=== PATIENT | female | born 1955 | race Caucasian/White ===

== ENCOUNTER → 2017-02-05 | Outpatient (CLI) | payer OTHER ==
--- NOTE | 2017-02-05 10:09 | RADIOLOGY REPORT (SQ) ---
EXAM DESCRIPTION: U/S ABDOMEN LIMITED W/O DOP COMPLETED DATE/TIME: 02/05/2017 8:51 am REASON FOR STUDY: R68.81 EARLY SATIETY R10.9 ABDOMINAL PAIN, UNSPECIFIED SITE R68.81 EARLY SATIETY R10.9 UNSPECIFIED ABDOMINAL PAIN COMPARISON: CT abdomen pelvis 05/18/2014, 09/26/2013 TECHNIQUE: Dynamic and static grayscale images acquired of the abdomen and recorded on PACS. Additio nal selected color Doppler and spectral images recorded. LIMITATIONS: Midline bowel gas, large patient. FINDINGS: PANCREAS: Midline pancreas unremarkable. LIVER: No masses. Echotexture normal. LIVER VASCULATURE: Normal directional flow of the main portal vein and hepatic veins. GALLBLADDER: Surgically absent ULTRASOUND-DETECTED CANTOR'S SIGN: Negative. INTRAHEPATIC DUCTS AND COMMON DUCT: CBD and intrahepatic ducts normal caliber. No filling defects. INFERIOR VENA CAVA: Not well seen AORTA: No aneurysm. RIGHT KIDNEY: Right renal pelvis calculus seen in 2015 is not definitely identified on today's study PERITONEAL AND RIGHT PLEURAL SPACE: No ascites or effusions. OTHER: No other significant findings. IMPRESSION: Post cholecystectomy. No intrahepatic biliary ductal dilatation Midline pancreas unremarkable. TECHNICAL DOCUMENTATION: JOB ID: [id number] [email or web address] All Rights Reserved
== END ==
LOC: RAD 07:55
PROVIDERS: ATTEND Internal Medicine Gastroenterology
DX: R10.9 Unspecified abdominal pain (principal); R68.81 Early satiety
CPT/HCPCS: 76705